=== PATIENT | female | born 1985 | race Caucasian/White ===

== ENCOUNTER → 2016-12-30 | Outpatient (CLI) | payer OTHER | LOC: EMI 12:53 | DX: R51 Headache (principal); J32.2 Chronic ethmoidal sinusitis | CPT/HCPCS: 70551 ==

== ENCOUNTER → 2020-05-27 | Outpatient (CLI) | payer OTHER | LOC: OPSV 11:00 | DX: M32.9 Systemic lupus erythematosus, unspecified (principal) | CPT/HCPCS: 96365; 96375; J0490; J1720; J7030 ==

== ENCOUNTER → 2020-06-10 | Outpatient (CLI) | payer OTHER | LOC: OPSV 11:00 | DX: M32.9 Systemic lupus erythematosus, unspecified (principal) | CPT/HCPCS: 96365; 96375; J0490; J1720; J7030 ==

== ENCOUNTER → 2020-06-24 | Outpatient (CLI) | payer OTHER | LOC: OPSV 11:00 | DX: M32.9 Systemic lupus erythematosus, unspecified (principal) | CPT/HCPCS: 96365; 96375; J0490; J1720; J7030 ==

== ENCOUNTER → 2020-07-23 | Outpatient (CLI) | payer OTHER | LOC: OPSV 07-22 10:00 | DX: M32.9 Systemic lupus erythematosus, unspecified (principal) | CPT/HCPCS: 96365; 96375; J0490; J1720; J7030 ==

== ENCOUNTER → 2020-09-08 | Outpatient (CLI) | payer OTHER | LOC: OPSV 07:00 | DX: M32.9 Systemic lupus erythematosus, unspecified (principal) | CPT/HCPCS: 96365; 96375; J0490; J1720; J7030 ==

== ENCOUNTER → 2020-10-07 | Outpatient (CLI) | payer OTHER | LOC: OPSV 07:22 | DX: M32.9 Systemic lupus erythematosus, unspecified (principal) | CPT/HCPCS: 96365; 96375; J0490; J1720; J7030 ==

== ENCOUNTER → 2020-11-04 | Outpatient (CLI) | payer OTHER | LOC: OPSV 11:00 | DX: M32.9 Systemic lupus erythematosus, unspecified (principal) | CPT/HCPCS: 96365; 96375; J0490; J1720; J7030 ==

== ENCOUNTER → 2020-12-02 | Outpatient (CLI) | payer OTHER | LOC: OPSV 11:00 | DX: M32.9 Systemic lupus erythematosus, unspecified (principal) | CPT/HCPCS: 96365; 96375; J0490; J1720; J7030 ==

== ENCOUNTER → 2021-01-06 | Outpatient (CLI) | payer OTHER | LOC: OPSV 11:00 | DX: M32.9 Systemic lupus erythematosus, unspecified (principal) | CPT/HCPCS: 96365; 96375; J0490; J1720; J7030 ==

== ENCOUNTER → 2021-02-03 | Outpatient (CLI) | payer OTHER | LOC: OPSV 11:50 | DX: M32.9 Systemic lupus erythematosus, unspecified (principal) | CPT/HCPCS: 96365; 96375; J0490; J1720; J7030 ==

== ENCOUNTER → 2021-03-03 | Outpatient (CLI) | payer OTHER | LOC: OPSV 11:00 | DX: M32.9 Systemic lupus erythematosus, unspecified (principal) | CPT/HCPCS: 96365; 96375; J0490; J1720; J7030 ==

== ENCOUNTER → 2021-04-02 | Outpatient (CLI) | payer OTHER | LOC: OPSV 03-31 11:00 | DX: M32.9 Systemic lupus erythematosus, unspecified (principal) | CPT/HCPCS: 96365; 96375; J0490; J1720; J7030 ==

== ENCOUNTER → 2021-05-05 | Outpatient (CLI) | payer OTHER | LOC: OPSV 11:00 | DX: M32.9 Systemic lupus erythematosus, unspecified (principal) | CPT/HCPCS: 96365; 96375; J0490; J1720; J7030 ==

== ENCOUNTER → 2021-06-02 | Outpatient (CLI) | payer OTHER ==
[~2021-06-02] VITALS: Ht 170.2 cm; Wt 83.5 kg
== END ==
LOC: OPSV 11:00
DX: M32.9 Systemic lupus erythematosus, unspecified (principal)
CPT/HCPCS: 96365; 96375; J0490; J1720; J7030

== ENCOUNTER → 2021-06-08 | Outpatient (CLI) | payer OTHER ==
[2021-06-08 16:59] LABS: HEMOGLOBIN 12.3 gm/dl (12.3-15.3); RED BLOOD COUNT 4.3 M/UL (4.00-5.10); WHITE BLOOD COUNT 4.9 K/UL (4.5-11.0)
[2021-06-08 17:19] LABS: BUN/CREATININE RATIO 16 (0-10)
[2021-06-10 13:10] LABS: COMPLEMENT C3, SERUM 149 mg/dL (82-167); COMPLEMENT C4, SERUM 23 mg/dL (12-38)
[2021-06-10 16:12] LABS: DSDNA CRITHIDIA LUCILIAE IFA Negative (Negative)
== END ==
LOC: LAB 15:45
PROVIDERS: Internal Medicine Rheumatology
DX: M32.9 Systemic lupus erythematosus, unspecified (principal); M25.519 Pain in unspecified shoulder
CPT/HCPCS: 71046; 80053; 81001; 82570; 83520; 84156; 85025; 85652; 86038; 86140; 86160; 86162; 86200; 86255

== ENCOUNTER → 2021-06-30 | Outpatient (CLI) | payer OTHER | LOC: OPSV 11:00 | DX: M32.9 Systemic lupus erythematosus, unspecified (principal) | CPT/HCPCS: 96365; 96375; J0490; J1720; J7030 ==

== ENCOUNTER → 2021-07-28 | Outpatient (CLI) | payer OTHER | LOC: OPSV 10:36 | DX: M32.9 Systemic lupus erythematosus, unspecified (principal) | CPT/HCPCS: 96365; J0490; J7030 ==

== ENCOUNTER → 2021-08-25 | Outpatient (CLI) | payer OTHER | LOC: OPSV 11:00 | DX: M32.9 Systemic lupus erythematosus, unspecified (principal) | CPT/HCPCS: 96365; J0490; J7030 ==

== ENCOUNTER → 2021-09-22 | Outpatient (CLI) | payer OTHER ==
[~2021-09-22] VITALS: Ht 170.2 cm; Wt 83.5 kg
== END ==
LOC: OPSV 10:54
DX: M32.9 Systemic lupus erythematosus, unspecified (principal)
CPT/HCPCS: 96365; J0490; J7030

== ENCOUNTER → 2021-10-20 | Outpatient (CLI) | payer OTHER | LOC: OPSV 10:45 | DX: M06.4 Inflammatory polyarthropathy (principal); M32.9 Systemic lupus erythematosus, unspecified | CPT/HCPCS: 96365; J0490; J7030 ==

== ENCOUNTER → 2021-11-17 | Outpatient (CLI) | payer OTHER ==
[~2021-11-17] VITALS: Ht 170.2 cm; Wt 83.5 kg
== END ==
LOC: OPSV 11:00
DX: M06.4 Inflammatory polyarthropathy (principal); M32.9 Systemic lupus erythematosus, unspecified
CPT/HCPCS: 96365; J0490; J7030

== ENCOUNTER → 2021-12-15 | Outpatient (CLI) | payer OTHER ==
[2021-12-15 13:22] LABS: HEMOGLOBIN 11.1 gm/dl (12.3-15.3); RED BLOOD COUNT 3.95 M/UL (4.00-5.10); WHITE BLOOD COUNT 5.7 K/UL (4.5-11.0)
== END ==
LOC: OPSV 12:55
PROVIDERS: Internal Medicine Rheumatology
DX: D72.819 Decreased white blood cell count, unspecified (principal)
CPT/HCPCS: 85025; 96365; J0490; J7030

== ENCOUNTER → 2022-01-12 | Outpatient (CLI) | payer OTHER ==
[~2022-01-12] VITALS: Ht 170.2 cm; Wt 83.5 kg
== END ==
LOC: OPSV 13:00
DX: M06.4 Inflammatory polyarthropathy (principal); M32.9 Systemic lupus erythematosus, unspecified
CPT/HCPCS: 96365; J0490; J7030